=== PATIENT | female | born 1975 | race Two or more races ===

== ENCOUNTER 2024-01-12 16:38 | Emergency (ER) | payer BC ==
[~2024-01-12] VITALS: Ht 157.5 cm; Wt 97.7 kg
[2024-01-12 17:21] VITALS: BP 122/81; PULSE 6; RESP 18; O2SAT 97
== END 2024-01-12 21:34 | disposition home or self-care (01) ==
LOC: ER 16:38
DX: L76.22 Postprocedural hemorrhage of skin and subcutaneous tissue following other procedure (principal); F15.90 Other stimulant use, unspecified, uncomplicated; Z48.01 Encounter for change or removal of surgical wound dressing; Z98.890 Other specified postprocedural states